=== PATIENT | male | born 1965 | race African-American/Black ===

== ENCOUNTER 2019-10-15 09:35 | Emergency (ER) | payer MEDICAID ==
[~2019-10-15] VITALS: Ht 182.9 cm; Wt 79.4 kg
[2019-10-15 09:49] VITALS: BP 163/101
--- NOTE | 2019-10-15 10:48 | NUR ---
54 YEAR OLD MALE COMPLAINS OF UPPER AND LOWER TOOTH ACHE X 2 DAYS. PT STATES THAT HE WAS MIDLE OF SURGERY BEFORE COVID, BEEN HAVING SOME PAIN SINCE SURGERY NOT FINISHED. PT AOX4, BREATHING EVEN AND UNLABORED, SKIN WARM AND DRY. ALLERGIES - ASA
--- NOTE | 2019-10-15 11:13 | NUR ---
Patient discharged with v/s stable. Written and verbal after care instructions about dental abscess given and explained. Patient alert, oriented and verbalized understanding of instructions. Ambulatory with steady gait. All questions addressed prior to discharge. ID band removed. Patient advised to follow up with PMD. Rx of penicillin VK, oxycodone given. Patient educated on indication of medication including possible reaction and side effects. Opportunity to ask questions provided and answered.
[2019-10-15 11:14] VITALS: BP 156/98
== END 2019-10-15 11:13 | disposition home or self-care (01) ==
LOC: MED 09:35
DX: K04.7 Periapical abscess without sinus (principal); Z88.6 Allergy status to analgesic agent
CPT/HCPCS: 99283